=== PATIENT | male | born 1985 | race Caucasian/White ===

== ENCOUNTER 2019-03-05 15:30 | Emergency (ER) | payer SELFPAY ==
[2019-03-05] MEDS ORDERED: XYLOCAINE 2% INFILTRATI STA (15:45)
--- NOTE | 2019-03-05 15:51 | Emergency Department Report ---
ED Fall HPI - General Chief Complaint: Fall Stated Complaint: FELL OFF LADDER 10FT Time Seen by Provider: 03/05/19 15:41 Source: patient Mode of arrival: Ambulatory - History of Present Illness Initial Comments: 33-year-old male presents emergency department status post fall from a ladder. Manual was working on a ladder with a drill at about 10 feet high when he states the drill caught causing him to lose his balance and he fell down to a hardwood floor and noticed throbbing head pain and noticed some bleeding. Reports of throbbing pain to the right upper head. He denies neck pain or any facial pain. Does report having a scrape on his left forearm little discomfort to the left rib region. MD Complaint: fall Fall Witnessed: no Place Fall Occurred: work Loss of Consciousness: yes Prolonged Down Time?: unclear Symptoms Prior to Fall: none Location: head Location - Extremities: Left: Forearm Severity: mild Quality: dull Associated Symptoms: headache. denies: neck pain, numbness, weakness, shortness of breath, abdominal pain, unable to walk - Related Data Previous Rx's Medication Instructions Recorded Last Taken Type Chlorhexidine Gluconate 10 ml TP BID #240 liquid 03/05/19 Unknown Rx [Antiseptic Skin Cleanser] Mupirocin [Bactroban 2%] 1 applic TP TID #1 tube 03/05/19 Unknown Rx Allergies Allergy/AdvReac Type Severity Reaction Status Date / Time No Known Allergies Allergy Unverified 03/05/19 15:32 ED Review of Systems ROS: Stated complaint: FELL OFF LADDER 10FT Other details as noted in HPI Comment: All other systems reviewed and negative ED Past Medical Hx - Past Medical History Previous Medical History?: No - Surgical History Hx Appendectomy: Yes - Social History Smoking Status: Never Smoker - Medications Home Medications: Home Medications Medication Instructions Recorded Confirmed Last Taken Type Chlorhexidine Gluconate 10 ml TP BID #240 liquid 03/05/19 Unknown Rx [Antiseptic Skin Cleanser] Mupirocin [Bactroban 2%] 1 applic TP TID #1 tube 03/05/19 Unknown Rx ED Physical Exam - General Limitations: No Limitations General appearance: alert, in no apparent distress - Head Head exam: Present: normocephalic - Expanded Head Exam Expanded Head exam: Present: laceration, contusion 1 - Tenderness to this region surrounding the laceration. No bruising noted. - Eye Eye exam: Present: normal appearance, PERRL, EOMI - ENT ENT exam: Present: normal exam, mucous membranes moist - Neck Neck exam: Present: normal inspection, full ROM. Absent: tenderness, meningismus, thyromegaly - Respiratory Respiratory exam: Present: normal lung sounds bilaterally. Absent: respiratory distress, wheezes, rales, chest wall tenderness, accessory muscle use - Cardiovascular Cardiovascular Exam: Present: regular rate, normal rhythm. Absent: tachycardia, systolic murmur, diastolic murmur, rubs, gallop - GI/Abdominal GI/Abdominal exam: Present: soft, normal bowel sounds - Rectal Rectal exam: Present: deferred - Extremities Exam Extremities exam: Present: normal inspection, normal capillary refill - Back Exam Back exam: Present: normal inspection, tenderness (lumbar region with palpation.). Absent: CVA tenderness (R), CVA tenderness (L) - Neurological Exam Neurological exam: Present: alert, oriented X3, CN II-XII intact, normal gait, reflexes normal - Psychiatric Psychiatric exam: Present: normal affect, normal mood - Skin Skin exam: Present: warm, dry, intact, normal color. Absent: rash ED Course Vital Signs 03/05/19 03/05/19 15:35 15:56 Temperature 98.3 F 98 F Pulse Rate 83 80 Respiratory 18 18 Rate Blood Pressure 130/92 Blood Pressure 127/80 [Left] O2 Sat by Pulse 93 100 Oximetry - Consultations Consultation #1: 03/05/19 15:[address] Womack whom also had face to face. - Laceration /Wound Repair Head Wound Length (cm): 3 (2.5) Wound's Depth, Shape: linear Wound Explored: clean Anesthesia: 1% Lidocaine Volume Anesthetic (ccs): 3 Wound Debrided: minimal Layer Closure?: No (closed with chris x3) Sterile Dressing Applied?: Yes ED Medical Decision Making - Radiology Data Radiology results: report reviewed Findings [facility] [address] [place] [address] Cat Scan Report Signed Patient: ABISAI KING MR#: [id number] 162 : 1985 Acct:[id number] Age/Sex: 33 / M ADM Date: 03/05/19 Loc: ED Attending Dr: Ordering Physician: MEÑO WOMACK MD Date of Service: 03/05/19 Procedure(s): CT lumbar spine wo con Accession Number(s): [id number] cc: MEÑO WOMACK MD CT LUMBAR SPINE WITHOUT CONTRAST INDICATION: Low back pain after fall from 10 foot ladder. TECHNIQUE: Axial CT images of the spine were obtained. Sagittal and coronal reformatted images were produced. All CT scans at this location are performed using CT dose reduction for ALARA by means of automated exposure control. COMPARISON: None available. FINDINGS: ACUTE FRACTURE(S) OR SUBLUXATION: None. SPINAL DEGENERATIVE CHANGES: There are bilateral chronic L4 pars defects with slight grade 1 anterolisthesis of L4 on L5 as well as mild disc height loss and reactive endplate osteophyte formation at this level. PARASPINAL SOFT TISSUES: No soft tissue swelling or other acute abnormalities. ADDITIONAL FINDINGS: No significant additional findings. IMPRESSION: 1. No acute fracture or subluxation in the spine in neutral position. 2. Bilateral chronic L4 pars interarticularis defects with minimal grade 1 anterolisthesis of L4 on L5. Signer Name: Yao Newton MD Signed: 03/05/2019 4:55 PM Workstation Name: Peach Report Status:Finalized Findings [facility] [address] [place] [address] Cat Scan Report Signed Patient: ABISAI KING MR#: [id number] 162 : 1985 Acct:[id number] Age/Sex: 33 / M ADM Date: 03/05/19 Loc: ED Attending Dr: Ordering Physician: MALLORIE RAMIREZ Date of Service: 03/05/19 Procedure(s): CT head/brain wo con Accession Number(s): [id number] cc: MALLORIE RAMIREZ CT head/brain wo con INDICATION: Headache after head injury, fall from ladder.. TECHNIQUE: Routine CT head without contrast. All CT scans at this location are performed using CT dose reduction for ALARA by means of automated exposure control. COMPARISON: None. FINDINGS: BRAIN / INTRACRANIAL CONTENTS: No acute hemorrhage, brain edema, mass effect, or hydrocephalus. Normal leslie-white differentiation. No chronic infarct or focal atrophy. Normal brain volume and v entricular/sulcal size for age. CALVARIUM/SKULL BASE/CRANIOCERVICAL JUNCTION: No evidence of fracture. ORBITS: No significant abnormality of visualized orbits. SINUSES / MASTOIDS: No significant abnormality of visualized sinuses and mastoid air cells. ADDITIONAL FINDINGS: None. IMPRESSION: 1. No acute post-traumatic intracranial abnormality. Signer Name: Yao Newton MD Signed: 03/05/2019 4:53 PM Workstation Name: [id number] Transcribed By: TAMMIE Dictated By: Yao Newton MD Electronically Authenticated By: Yao Newton MD Signed Date/Time: 03/05/19 1483 - Medical Decision Making 33-year-old male on a ladder with a drill lost control falling down striking his head with possible LOC. CT scan shows no acute intracranial processes of the head or lumbar region. Patient is awake alert and oriented 3 no acute distress ambulatory speak in full sentences FOLLOWING NO LIMITATIONS. C-Collar cleared by the Attending Dr. Womack. DISCUSSED THE FINDINGS OR LACK THEREOF ALSO A CARE NEEDED FOR HIS CHRIS PLACED IN THE SCALP 3. We discussed head injury concussions and postconcussive syndrome and he advised him and to return to the emergency department. He is present with his father and both are of sound judgment and expressed an understanding of the findings here today plan Motrin for Critical care attestation.: If time is entered above; I have spent that time in minutes in the direct care of this critically ill patient, excluding procedure time. ED Disposition Clinical Impression: Fall from height of greater than 3 feet, Head injury due to trauma, Laceration of scalp Disposition: DC-01 TO HOME OR SELFCARE Is pt being admited?: No Does the pt Need Aspirin: No Condition: Stable Instructions: Minor Head Injury (ED), Concussion (ED), Laceration (ED), Staple Care (ED) Prescriptions: Chlorhexidine Gluconate [Antiseptic Skin Cleanser] 10 ml TP BID #240 liquid Mupirocin [Bactroban 2%] 1 applic TP TID #1 tube Referrals: [facility] [Provider Group] - 3-5 Days (Please follow up for staple removal in 5 days)
--- NOTE | 2019-03-05 16:11 | Event Note ---
Date of service: 03/05/19 Face to Face: This is a 33-year-old gentleman who presents to the ER after mechanical fall. He reportedly hit his head, and they have had a temporary loss of consciousness. In my examination, he is alert and oriented 3, and clinically sober. He does not have distracting injury. He has a GCS of 15. There is no midline cervical spine tenderness or step-offs. His cervical spine is cleared through the Nexus criteria. The remainder was primary survey is unremarkable. Secondary survey shows lumbar spine tenderness, and scalp abrasion. CT scan brain, lumbar spine negative for acute disease. Patient was given precautions regarding concussion. He was instructed to not participate in physical activity, and to avoid contact sports. He verbalizes understanding. We discussed expectant management for concussions. He has a small scalp laceration which will be repaired by the physician language assistant. He is smiling at this time, and in no acute distress. He will be medically suitable for discharge once his laceration has been repaired Vital Signs 03/05/19 03/05/19 15:35 15:56 Temperature 98.3 F 98 F Pulse Rate 83 80 Respiratory 18 18 Rate Blood Pressure 130/92 Blood Pressure 127/80 [Left] O2 Sat by Pulse 93 100 Oximetry
[2019-03-05] MEDS ORDERED: PERCOCET 5/325 PO ONE (16:17)
--- NOTE | 2019-03-05 16:58 | Cat Scan Report ---
CT head/brain wo con INDICATION: Headache after head injury, fall from ladder.. TECHNIQUE: Routine CT head without contrast. All CT scans at this location are performed using CT dose reduction for ALARA by means of automated exposure control. COMPARISON: None. FINDINGS: BRAIN / INTRACRANIAL CONTENTS: No acute hemorrhage, brain edema, mass effect, or hydrocephalus. Misty l leslie-white differentiation. No chronic infarct or focal atrophy. Normal brain volume and ventricula r/sulcal size for age. CALVARIUM/SKULL BASE/CRANIOCERVICAL JUNCTION: No evidence of fracture. ORBITS: No significant abnormality of visualized orbits. SINUSES / MASTOIDS: No significant abnormality of visualized sinuses and mastoid air cells. ADDITIONAL FINDINGS: None. IMPRESSION: 1. No acute post-traumatic intracranial abnormality. Signer Name: Yao Newton MD Signed: 03/05/2019 4:53 PM Workstation Name: [id number]
--- NOTE | 2019-03-05 17:00 | Cat Scan Report ---
CT LUMBAR SPINE WITHOUT CONTRAST INDICATION: Low back pain after fall from 10 foot ladder. TECHNIQUE: Axial CT images of the spine were obtained. Sagittal and coronal reformatted images were produced. Al l CT scans at this location are performed using CT dose reduction for ALARA by means of automated exp osure control. COMPARISON: None available. FINDINGS: ACUTE FRACTURE(S) OR SUBLUXATION: None. SPINAL DEGENERATIVE CHANGES: There are bilateral chronic L4 pars defects with slight grade 1 anteroli sthesis of L4 on L5 as well as mild disc height loss and reactive endplate osteophyte formation at th is level. PARASPINAL SOFT TISSUES: No soft tissue swelling or other acute abnormalities. ADDITIONAL FINDINGS: No significant additional findings. IMPRESSION: 1. No acute fracture or subluxation in the spine in neutral position. 2. Bilateral chronic L4 pars interarticularis defects with minimal grade 1 anterolisthesis of L4 on L 5. Signer Name: Yao Newton MD Signed: 03/05/2019 4:55 PM Workstation Name: [id number]
[2019-03-05 18:21] VITALS: BP 108/79
== END 2019-03-05 18:17 | disposition home or self-care (01) ==
LOC: ED 15:30
DX: S01.01XA Laceration without foreign body of scalp, initial encounter (principal); Z90.89 Acquired absence of other organs; W17.89XA Other fall from one level to another, initial encounter; Y93.89 Activity, other specified; Y92.69 Other specified industrial and construction area as the place of occurrence of the external cause; Y99.8 Other external cause status
CPT/HCPCS: 70450; 71046; 72131